=== PATIENT | female | born 1945 | race Caucasian/White ===

== ENCOUNTER 2019-12-01 09:16 | Outpatient (CLI) | payer MEDICARE, SELFPAY ==
--- NOTE | 2019-12-01 09:30 | XR_ITS ---
WS: [id number] LATERAL CERVICAL SPINE: 3 view. Lateral radiographs are performed in upright neutral, flexion and extension to the patient's toleranc e. HISTORY: Cervical Disc Disorder COMPARISON: 10/07/2019 Anterior cervical fusion plate and screws at C4-5. Interbody spacer at C4-5 and C5-6. Very slight ret rolisthesis of C4 by 2 mm. With flexion and extension there is no significant instability appreciated . Small osteophytes extend posteriorly from C4. No lucency around the hardware. XR/XR cervical spine fl/ex [id number] IMPRESSION: 1. Stable anterior cervical plate and screws at C4-5. 2. Interbody spacers at C4-5 and C5-6 are stable. 3. No instability.
== END 2019-12-01 09:17 | disposition home or self-care (01) ==
LOC: RAD 09:23
PROVIDERS: Family Provider Nurse Practitioner Family; PCP Family Medicine; Visit Provider Specialist
DX: M50.020 Cervical disc disorder with myelopathy, mid-cervical region, unspecified level (principal)
CPT/HCPCS: 72040

== ENCOUNTER 2019-12-24 15:45 | Observation (INO) | payer MEDICARE, SELFPAY ==
[2019-12-22 09:48] VITALS: BMI 26.9
--- NOTE | 2019-12-22 09:54 | ECG_ITS ---
Measurements Intervals [place] Rate: 56 P: 69 SC: 174 QRS: 26 QRSD: 100 T: 90 QT: 404 QTc: 393 SINUS BRADYCARDIA LOW QRS VOLTAGE IN PRECORDIAL LEADS [QRS DEFLECTION < 1.0 mV IN CHEST LEADS] NONSPECIFIC ST & T-WAVE ABNORMALITY Compared to ECG 08/09/2016 11:10:16 T-wave abnormality now present Sinus rhythm no longer present Myocardial infarct finding no longer present Electronically Signed On 12-22-2019 18:37:12 CLINICAL RESOURCE DIRECTOR by Shantel Mcdonough M.D. [email or web address]
[2019-12-24] VITALS (15 sets, daily range): BP systolic 115–179; BP diastolic 71–96; PULSE 61–90; RESP 17–23; TEMP 36.3–37.6; O2SAT 93–97
[2019-12-24] MEDS: sodium chloride 0.9% 1,000 ML 30 ML IV (09:04)
--- NOTE | 2019-12-24 09:05 | ANES.PREANES ---
Pre-Anesthetic Assessment Pre-Anesthetic Assessment: Height/Weight: Height 1.69 m Weight 76.657 kg Temp Pulse Resp BP Pulse Ox 99.6 F 61 18 159/83 96 12/24/19 08:43 12/24/19 08:43 12/24/19 08:43 12/24/19 08:43 12/24/19 08:43 Preop Diagnosis: Intervertebral disc disorder with myelopathy, mid cervical Proposed Procedure: Operation Date: 12/24/19 09:50 Proposed Procedures p Anterior Cervical Discectomy&Fusion 1Lev C3-C4 42108 M50.020(Not Applicable) - Carlos Rosario MD Familial anesthetic complications: No trouble, last took placvix thursdcay Was Beta Marcus taken within 24 hours: N/A Last intake: Intake Last Liquid Date 12/23/19 Last Liquid Time 22:00 Last Solid Date 12/23/19 Last Solid Time 17:00 Social: Social History: Tobacco (0.5 ppd) Exam: Pre-Anes Outpt Exam: alert, oriented x 3, clear to auscultation bilaterally and regular rate & rhythm Airway: Cervical ROM: Other (limted to pain ) MP: 1 Dentition: Full Pulmonary: Pulmonary: None reported Comments: does take inhaler prn since getting walking pneumonia last summer CV/HEM: CV/HEM: GA Comments: stents - last one in 2006, on plavix and ASA : : None reported Hepatic: Hepatic: None reported GI: GI: GERD Metabolic: Metabolic: Hyperlipidemia Musc/skel: Musc/skel: RA (doesn't seem to be affected ) Neuropsych: Neuropsych: None reported Anesthetic Plan: ASA status: III Anesthesia: General Meds/Allergies Current Medications: Current Medications Generic Name Dose Route Start Last Admin Trade Name Freq PRN Reason Stop Dose Admin Sodium Chloride 1,000 mls @ 30 ml s/hr 12/24/19 08:30 12/24/19 09:04 Sodium Chloride 0.9% IV 12/25/19 08:29 30 mls/hr .Q24H GERTRUDE Administration PFSH Anesthesia PFSH: Medical History (Updated 12/23/19 @ 11:50 by Farzana Posey LPN) Cervical disc disorder with myelopathy of mid-cervical region (Acute) Surgical History History of fusion of cervical spine (Acute) C5-C6; 2003; [facility] History of fusion of cervical spine (Acute) C4-C5; 08/12/2016; [facility]. Social History Smoking and tobacco status: current every day smoker Alcohol intake: current Alcohol intake frequency: holidays/special occasions only Lives independently: Yes Household members: spouse Marital status: Current occupational status: disabled History of recent travel: No Data Anesthesia Cardiac Studies: No Data to Display
[2019-12-24] MEDS: midazolam 1 mg/mL INJ 2 mL 2 MG IVP (11:32)
--- NOTE | 2019-12-24 11:55 | PM.HPUD ---
H&P update H&P Update: DATE OF SURGERY/PROCEDURE: 12/24/19 DATE H&P PERFORMED: 12/14/19 H&P UPDATE INFORMATION: H&P completed within last 30 days, No changes to prior documentation (Off Plavix/aspirin x 1 week) and H&P is in [facility] EMR on date indicated PREOP DIAGNOSIS: Intervertebral disc disorder with myelopathy PRIMARY INDICATION FOR PROCEDURE: Neck/right upper extremity symptoms PLANNED PROCEDURE: Operation Date: 12/24/19 09:50 Proposed Procedures Anterior Cervical Discectomy/Fusion/Fixation, C3-C4 - Carlos Rosario MD Full H&P Medications/Allergies: Current Medications: Current Medications Generic Name Dose Route Start Last Admin Trade Name Freq PRN Reason Stop Dose Admin Sodium Chloride 1,000 mls @ 30 ml s/hr 12/24/19 08:30 12/24/19 09:04 Sodium Chloride 0.9% IV 12/25/19 08:29 30 mls/hr .Q24H GERTRUDE Administration Perinent History: Medical/Surgical History: Medical History (Updated 12/01/19 @ 08:21 by Carlos Rosario MD) Cervical disc disorder with myelopathy of mid-cervical region (Acute) Family History: Family History (Updated 11/30/19 @ 17:06 by Columba Devries LPN) Brother Cancer Family history of premature coronary artery disease Sister Cancer Father Cancer Mother Diabetes Other Rheumatoid arthritis Social History: Social History Smoking and tobacco status: current every day smoker Alcohol intake: current Alcohol intake frequency: holidays/special occasions only Lives independently: Yes Household members: spouse Marital status: Current occupational status: disabled History of recent travel: No
--- NOTE | 2019-12-24 11:58 | XR_ITS ---
WS: [id number] Portable lateral cervical spine in the OR, 12/24/2019, 1257 hours. Clinical Data: intra-op Comparison: Cervical spine, 12/01/2019 Findings: The endotracheal tube is in good position. The anterior cervical disc fusion of C4-C5 is visible. The re is a radiopaque needle is at the level of the C4-C5 disc. XR/XR cervical spine 1ort [id number] Impression: Localization of C4-C5 disc.
--- NOTE | 2019-12-24 12:18 | PM.OP2 ---
 Brief Operative Note: Date of procedure: 12/24/19 Pre-op diagnosis: Intervertebral disc disorderwiith myelopathy, cervical Post-op diagnosis: other (Same, with instability of joint) Procedure Done: C3-C4 ACDFF, with removal of C4-C5 fixation hardware Surgeon: Carlos Rosario Estimated blood loss (mL): 25 Complications: None Post-op Plan: PACU, the surgical carlson Condition: stable Disposition: PACU Coding Level of Care Code Acute Natural Resources Instructor for [facility]
--- NOTE | 2019-12-24 13:04 | SUR.OPER ---
family updated of patient status.
--- NOTE | 2019-12-24 14:05 | SUR.OPER ---
Family members updated of patient's status.
--- NOTE | 2019-12-24 15:02 | SUR.OPER ---
family updated of patients status
--- NOTE | 2019-12-24 15:10 | SUR.OPER ---
surgifoam placed in neck per Dr. Rosario. lot:[id number] exp: 10/25/23
--- NOTE | 2019-12-24 15:16 | XR_ITS ---
WS: [id number] CERVICAL SPINE TECHNIQUE: 3 views of the cervical spine CLINICAL INFORMATION: postop COMPARISON: None. FINDINGS: Straightening of the normal cervical lordosis with anterior interbody cervical fusion C3-C4. Hardware appears in good position. Prior fusion C5-C7. XR/XR cervical spine 3V* [id number] IMPRESSION: Normal for postoperative purposes
--- NOTE | 2019-12-24 15:32 | SUR.PHASEI ---
1530 PATIENT TO PACU AT THIS TIME VIA GURNEY FROM OR. RR EVEN AND UNLABORED. PWD. PLACED ON 8L O2 SIMPLE MASK AT 94%. ANTERIOR NECK, DRESSING, CDI WITH [place] J COLLAR IN PLACE. PATIENT DOESN'T REPLY TO VERBAL STIMULI AT THIS TIME.
--- NOTE | 2019-12-24 16:13 | SUR.PHASEI ---
1558 PATIENT TO MED SURG AT THIS TIME VIA ROD. PATIENT A/OX3. RR EVEN AND UNLABORED. PWD. DENIES PAIN. DRESSING DRY AND INTACT TO ANTERIOR NECK, WITH COLLAR IN PLACE.
[2019-12-24] MEDS: HYDROcodone-acetaminophen 10-325 mg Tablet 1 TAB PO (16:54)
[2019-12-24] MEDS: lactated ringers 1,000 ML 90 ML IV (17:16)
[2019-12-24] MEDS: docusate sodium 100 mg Capsule PO (17:50)
[2019-12-24] MEDS: ketorolac 30 mg/mL INJ 15 MG IVP (20:13)
[2019-12-24] MEDS: albuterol 8 gm MDI 2 PUFF INHALATION (20:16)
--- NOTE | 2019-12-24 20:36 | PM.PN ---
Subjective Subjective: Interval history: No complaints. Vitals/I&O/Wt Last Vital Signs Temp 98.5 F 12/24/19 19:10 Pulse 75 12/24/19 20:20 Resp 17 12/24/19 20:16 BP 115/71 12/24/19 19:10 Pulse Ox 95 12/24/19 20:20 12/24/19 12/24/19 12/24/19 06:59 14:59 22:59 Intake Total 1050 / 1050 502.5 / 1552.5 Output Total Balance 1050 / 1050 477.5 / 1527.5 Physical Exam Const: COMMON NORMALS: no apparent distress GENERAL APPEARANCE: cooperative and comfortable Neck/C-Spine: GENERAL: Yes trachea midline CERVICAL SPINE: Yes collar present Resp: COMMON NORMALS: normal respiratory effort EFFORT & INSPECTION: Yes able to speak in complete sentences and No stridor Neuro: COMMON NORMALS: moves all extremities and no focal motor deficits (bilateral upper extremities) Psych: COMMON NORMALS: speech normal ATTITUDE: Yes calm and Yes engaged ACTIVITY/MOTOR BEHAVIOR: Yes appropriate eye contact SPEECH: Yes normal speech MOOD & AFFECT: Yes euthymic mood ATTENTION/CONCENTRATION: Yes attention grossly intact INSIGHT: insight good JUDGEMENT: judgment good Skin: WOUNDS: Yes surgical site ( incision intact, with no active drainage) Details: drainage (dressing changed at bedside) Details: serosanguineous (scant old drainage on removed dressing) Data Other Xray: I personally reviewed and interpreted this imaging study as follows: (Postop changes of recent C3-C4 ACDFF, with removal of prior C4-C5 fixation hardware.) A&P Assessment and plan (1) Cervical disc disorder with myelopathy of mid-cervical region: Patient is doing well after C3-C4 ACDFF earlier today. She has ambulated to the bathroom. Plan completion of postop IV antibiotic doses, and Physical Therapy protocol. Anticipate discharge home tomorrow. Status: Acute Code(s): M50.020 - Cervical disc disorder with myelopathy, mid-cervical region, unspecified level (2) Instability of joint: Status: Acute Code(s): M25.30 - Other instability, unspecified joint Attestations Medical Necessity Statement*: Patient is appropriate for in-hospital monitoring and management after cervical spine fusion surgery performed earlier today. Coding Level of Care Code Acute Therapeutic Massage Technician for [facility] Fwd Exam Problem Focused Diagnoses Cervical disc disorder with myelopathy of mid-cervical region M50.020 Instability of joint M25.30 Comment postop global period
[2019-12-25 04:01] VITALS: BP 169/79; PULSE 64; RESP 18; TEMP 36.7; O2SAT 94
[2019-12-25] MEDS: lactated ringers 1,000 ML 90 ML IV (04:36)
[2019-12-25] MEDS: albuterol 8 gm MDI 2 PUFF INHALATION (07:44)
[2019-12-25 07:46] VITALS: PULSE 77; RESP 16; O2SAT 93
[2019-12-25 07:55] VITALS: BP 166/80; PULSE 66; RESP 18; TEMP 36.6; O2SAT 94
[2019-12-25] MEDS: docusate sodium 100 mg Capsule PO (08:01)
[2019-12-25] MEDS: pantoprazole DR 40 mg Tablet PO (08:01)
[2019-12-25] MEDS: estradiol 1 mg Tablet 0.5 MG PO (08:01)
[2019-12-25] MEDS: atorvastatin 40 mg Tablet PO (08:01)
[2019-12-25] MEDS: HYDROcodone-acetaminophen 10-325 mg Tablet 1 TAB PO (08:01)
[2019-12-25] MEDS: lisinopril 10 mg Tablet PO (08:02)
[2019-12-25] MEDS: ketorolac 30 mg/mL INJ 15 MG IVP (08:54)
--- NOTE | 2019-12-25 10:38 | ANE.PACU2 ---
 Inpatient post-anesthesia follow up: Airway intact: Yes Vital signs: Temperature 98 F Pulse Rate 66 Respiratory Rate 18 Blood Pressure 166/80 Pulse Oximetry 94 Oxygen Delivery Me thod Room Air Oxygen Flow Rate 2.5 Fraction of Inspir ed Oxygen Hydration adequate: Yes Nausea and vomiting: No Pain level: 2 Mental status: Baseline
--- NOTE | 2019-12-25 12:12 | P.OP_ITS ---
Operative Report Date of procedure: December 24, 2019 Pre-op Diagnosis: Intervertebral disc disorder with myelopathy Post-op diagnosis: other (Same, with instability of joint.) Procedure Done: 1. C3-C4 anterior cervical discectomy with osteophytectomy. 2. C3-C4 anterior cervical plate and screw fixation (Synthes Vectra system). 3. C3-C4 placement of intervertebral prosthetic device (ACIS ProTi Spacer). 4. C3-C4 anterior cervical fusion, utilizing morselized autograft obtained from the osteophytectomy portions of the procedure. Specimens removed/disposition: C4-C5 anterior plate/screw fixation hardware (Synthes Vectra system)/cleaned for return to patient. Pathology: C3-C4 disc. Surgeon: Carlos Rosario Anesthesia: General Estimated blood loss (mL): 25 Complications: None. Condition: stable Disposition: PACU Brief History: The patient is a 74-year-old female with symptomatic, radiographically confirmed cervical disc/joint disease. Imaging studies demonstrated progressive spondylolisthesis and neural impingement at C3-C4. She had a history of prior C5-C6 and C4-C5 ACDFF surgeries, the latter in 2016. Conservative treatment measures had not provided adequate lasting symptom relief. After review of the diagnostic and treatment options with the risks/potential benefits/rationale for each, the patient requested to proceed with surgical decompression/fusion/fixation at the C3-C4 level. Procedure: After routine preoperative evaluation and informed consent were obtained, the patient was taken to the Operating Room and positioned supine on the operating table. She was placed under general endotracheal anesthesia by Anesthesia personnel. She was fit in the [facility] tongs for the application of in-line cervical traction. The anterolateral neck on the left was prepared with hair clippers, and a proposed transverse skin incision was marked with a s terile skin marker. Regional anatomy and intraoperative radiography were utilized for localization purposes. The area was scrubbed with Betadine and prepped with DuraPrep. Sterile towels and drapes were applied, and an [place] surgical barrier was placed. The proposed incision site was infiltrated with 1% Xylocaine with Epinephrine. A skin incision was made and carried down into the subcutaneous tissues. The platysma was identified and divided in the direction of its fibers. A plane was dissected just medial to the carotid sheath and lateral to the midline esophagus and trachea. The prevertebral soft tissues were bluntly dissected free of the anterior margin of the cervical spine and the previously implanted C4-C5 fixation hardware. Longus coli muscles were freed from their medial attachments, and deep self-retaining retractors were placed. The C4-C5 fixation screws were released from the plate with screw removal tool, and the hardware was removed intact. The prior surgical site was inspected, with solid fusion and appropriate interbody Spacer placement demonstrated. The C3-C4 interspace was then incised with a #11 blade. Discectomy was accomplished utilizing various curettes and pituitary rongeurs. Anterior marginal osteophytes were resected with Lempert and Kerrison rongeurs. Cartilaginous endplates were stripped free with curettes. Posterior marginal osteophytes were resected with the thin-foot plate Kerrison rongeurs. The medial aspects of the neural foramina were enlarged in a similar manner. Posterior longitudinal ligament was divided and resected as necessary to further the decompression. Osteophyte resection was pursued with Kerrison rongeurs and the [employer] Adan high-speed drill with niki vivian. At the completion of the decompression, no residual central canal or neuroforaminal impingement was identified upon probing with the right angle nerve hook. Decompression was felt to be adequate, and the disc space was sized. An 8mm ACIS ProTi lordotic/small Spacer was chosen. The Spacer was packed with morselized autograft obtained from the osteophytectomy portions of the procedure. The Spacer was placed within the C3-C4 interspace while in-line cervical traction was applied via the [employer] tongs. Spacer placement was facilitated by use of the mallet and impaction tools. Once the Spacer was in good position, a Synthes Vectra plate of the desired size was chosen. The plate was secured to the C3 and C4 vertebral bodies with bilateral 4mm x14mm self- drilling screws. Final screw tightening was performed, and the screws were noted to engage the locking mechanisms within the plate at each site. The construct was inspected and found to be in good position and secure. The wound was copiously irrigated with sterile saline and antibiotic irrigation. Hemostasis was ensured with the bipolar electrocautery. Wound closure was performed in multiple layers with 2-0 Vicryl Plus simple interrupted closure of the platysma and deep dermis as separate layers. Final skin closure was performed with 4-0 Vicryl Plus in a running subcuticular pattern. Steri-Strips were applied, and a sterile dressing was placed. The patient was released from the [facility] and fit in a [place] collar. She was extubated without incident. She was transferred onto the Recovery Room cart in the supine position. The patient tolerated the procedure well. All sponge, needle, and instrument counts were correct at the completion of the procedure.
[2019-12-25 12:15] VITALS: BP 158/76; PULSE 71; RESP 18; O2SAT 96
[2019-12-25 12:31] VITALS: BP 158/76; PULSE 71; RESP 18; O2SAT 96
--- NOTE | 2019-12-25 17:02 | PM.DCS ---
Discharge Providers Date of Admission: 12/24/19 15:45 Date of Discharge: December 25, 2019 Attending Provider at Admission: Carlos Rosario MD Attending Provider at Discharge: Carlos Rosario MD Primary Care Provider: Yayo Carter DO Diagnoses at Discharge Discharge Diagnosis (1) Cervical disc disorder with myelopathy of mid-cervical region: Status: Acute Problem details: Patient is doing well after C3-C4 ACDFF performed yesterday. She appears appropriate for discharge home today. (2) Instability of joint: Status: Acute Reason for Visit Reason for Visit: Reason For Visit: Cervial Disc Disorder with myelpahty of mid cervic Brief History: The patient is a 74-year-old female with symptomatic, radiographically confirmed cervical disc/joint disease. Imaging studies demonstrated progressive spondylolisthesis and neural impingement at C3-C4. She had a history of prior C5-C6 and C4-C5 ACDFF surgeries, the latter in 2016. Conservative treatment measures had not provided adequate lasting symptom relief. After review of the diagnostic and treatment options with the risks/potential benefits/rationale for each, the patient requested to proceed with surgical decompression/fusion/fixation at the C3-C4 level. Hospital Course Hospital Course: The patient underwent C3-C4 ACDFF on 12/24/2019. A prior C4-C5 anterior cervical plate/screw fixation construct was removed at the time of the surgery. She tolerated the procedure well. She completed perioperative intravenous antibiotic doses, and the physical therapy postoperative spine protocol. She was ambulatory, voiding, and tolerating regular diet prior to discharge home on postoperative day #1. Physical Exam Const: COMMON NORMALS: no apparent distress GENERAL APPEARANCE: cooperative and comfortable Eye: COMMON NORMALS: conjunctivae normal ALIGNMENT: Yes alignment normal CONJUNCTIVA: Yes conjunctivae normal Neck/C-Spine: GENERAL: Yes trachea midline CERVICAL SPINE: Yes collar present Resp: COMMON NORMALS: normal respiratory effort EFFORT & INSPECTION: Yes able to speak in complete sentences and No stridor Neuro: COMMON NORMALS: moves all extremities GAIT: Yes normal gait Psych: COMMON NORMALS: mental status grossly normal and speech normal ATTITUDE: Yes calm and Yes engaged ACTIVITY/MOTOR BEHAVIOR: Yes appropriate eye contact SPEECH: Yes normal speech MOOD & AFFECT: Yes euthymic mood ATTENTION/CONCENTRATION: Yes attention grossly intact INSIGHT: insight good JUDGEMENT: judgment good Skin: WOUNDS: Yes surgical site (Left anterolateral neck surgical site dressing clean/dry/intact.) Discharge Data Data Completed and Pending: Completed Studies During Hospitalization Category Date Time Status XR cervical spine 1Vport 95103 Rout ine Exams 12/24/19 11:58 Completed XR cervical spine 3V* [id number] Routine Exams 12/24/19 15:16 Completed Pathology: Surgic al [PTH] Routine Pth 12/24/19 14:47 Completed Addt'l Data from Hospital Stay: C-spine x-rays: Postoperative changes of recent C3-C4 ACDFF, with interval removal of prior C4-C5 anterior fixation hardware. No noted complications. Vitals: Last Vital Signs Temp 98 F 12/25/19 07:55 Pulse 71 12/25/19 12:31 Resp 18 12/25/19 12:31 BP 158/76 12/25/19 12:31 Pulse Ox 96 12/25/19 12:31 Discharge Plan Discharge Patient Disposition: Home, Self-Care Condition: Stable Prescriptions: Continued tramadol 50 mg tablet 100 mg PO TID PRN (Reason: Pain) RF: 0 hydrocodone-acetaminophen [[place]] 10-325 mg tablet 1 tab PO BID PRN (Reason: Pain) RF: 0 leflunomide 10 mg tablet 10 mg PO DAILY RF: 0 atorvastatin 40 mg tablet 40 mg PO DAILY RF: 0 lisinopril 10 mg tablet 10 mg PO DAILY RF: 0 Humira(CF) 40 mg/0.4 mL syringe kit 40 mg SUBCUT Q14D RF: 0 estradiol 0.5 mg tablet 0.5 mg PO ONCE RF: 0 albuterol sulfate [ProAir HFA] 90 mcg/actuation HFA aerosol inhaler 2 puff INHALATION QID RF: 0 nitroglycerin [Nitrostat] 0.4 mg tablet, sublingual 0.4 mg sublingual Q5M PRN (Reason: Chest Pain) RF: 0 lansoprazole 15 mg capsule,delayed release(DR/EC) 15 mg PO ONCE RF: 0 fluticasone propionate [Children's Flonase Allergy Rlf] 50 mcg/actuation spray,suspension 1 spray INTRANASAL ONCE PRN (Reason: allergy symptoms) RF: 0 Held clopidogrel 75 mg tablet 75 mg PO DAILY RF: 0 Hold Instructions: Resume on 12/27/19. aspirin [Adult Low Dose Aspirin] 81 mg tablet,delayed release (DR/EC) 81 mg PO DAILY RF: 0 Hold Instructions: Resume on 12/26/19. Discharge Orders: Discharge Order (Routine); Ordered 12/25/19 Ordered By: Carlos Rosario Other Ambulatory Orders: XR cervical spine 3V* [id number] (Routine) Timeframe: 2 Weeks Facility: [facility] - Location: Radiology [place] [facility] Ordered By: Carlos Rosario Referrals: Carlos Rosario MD [Physician] - 2 weeks (PLEASE CALL FRIDAY TO SET UP A FOLLOW UP APPOINTMENT) Discharge Diet: Advance as tolerated Discharge Activity: Limit activity as instructed Patient Instructions: Anterior Cervical Discectomy (DC) Activity Restrictions/Additional Instructions: Activity -Cervical fusion: Wear cervical collar 24 hours a day. Change as necessary for showering, shaving, or if it becomes soiled. -No lifting or reaching overhead. - No driving until office followup visit - No lifting/pushing/pulling over 10 pounds - Avoid twisting or bending - Walking is encouraged - Home exercise per physical therapist - You may engage in sexual intercourse at any time as long as it is comfortable for you - Check with your doctor before returning to work. Notify your doctor if you develop: - temperature of 101.5 degrees F. or higher - redness or swelling of the incision - Foul drainage - increasing pain - increasing numbness or tingling in the arms or legs - New or increasing problems with vision, balance, memory, speaking, nausea or vomiting Hygiene: - Showering is okay - No tub baths or soaking Other: Remove outer bandage 3 days after surgery. If you have paper strips, leave in place until they fall off on their own. If you have stitches, keep your incision dry until the stitches are removed. Your doctor's office is available to answer any questions from 7 AM to 5:00 PM, Friday through at [phone]. After hours, go to the emergency room at [facility] or call 911 for assistance. Discharge Date/Time: 12/25/19 13:44 Discharge Attestations Time Spent in Discharge Care*: other (postop global) Quality Metrics Clinical Quality Measures During this hospital stay, did patient experience: None Coding Level of Care Code Acute Transmission Design Engineer for [facility] Fwd Exam Problem Focused Diagnoses Cervical disc disorder with myelopathy of mid-cervical region M50.020 Instability of joint M25.30 Comment postop global
== END 2019-12-25 13:44 | disposition home or self-care (01) ==
LOC: MEDSURG 16:20
PROVIDERS: Admitting Provider Specialist; Family Provider Family Medicine; PCP Family Medicine; Visit Provider Specialist
PROC: 0RB30ZZ Excision of Cervical Vertebral Disc, Open Approach (ICD-10-PCS; CPT 22551; principal; 2019-12-24 09:50)
DX: M50.01 Cervical disc disorder with myelopathy, high cervical region (principal); M53.2X2 Spinal instabilities, cervical region; Z82.49 Family history of ischemic heart disease and other diseases of the circulatory system; Z83.3 Family history of diabetes mellitus; F17.210 Nicotine dependence, cigarettes, uncomplicated; Z98.1 Arthrodesis status; Z79.82 Long term (current) use of aspirin; Z79.891 Long term (current) use of opiate analgesic; I25.2 Old myocardial infarction; Z79.02 Long term (current) use of antithrombotics/antiplatelets; Z95.5 Presence of coronary angioplasty implant and graft; E78.5 Hyperlipidemia, unspecified; M06.9 Rheumatoid arthritis, unspecified
CPT/HCPCS: 22551; 22853; 12345; 72020; 72040; 88304; 93005; 94640; 96361; 96365; 96374; 96375; 97110; 97161; C1713; G0378; J0131; J0690; J1100; J1885; J2001; J2250; J2405; J2704; J3010; J3490; J3535; J7030; J8499; L0172; L0174

== ENCOUNTER 2020-01-06 12:15 | Outpatient (CLI) | payer MEDICARE, SELFPAY ==
--- NOTE | 2020-01-06 12:21 | XRR_ITS ---
PROCEDURE INFORMATION: Exam: XR Cervical Spine, 2 or 3 Views Exam date and time: 01/06/2020 12:40 PM Age: 74 years old Clinical indication: Condition or disease; Fusion; Cervical region; Prior surgery; Surgery date: 6+ months; Additional info: Postop follow up TECHNIQUE: Imaging protocol: XR of the cervical spine, 2 or 3 views. COMPARISON: CR XR cervical spine 3V* [id number] 12/24/2019 4:35 PM FINDINGS: Vertebrae: There is an anterior fusion plate at C3/4 which is unchanged. Soft tissues: Normal. XR/XR cervical spine 3V* [id number] IMPRESSION: No significant change when compared with 12/24/2019.
== END 2020-01-06 12:16 | disposition home or self-care (01) ==
LOC: RAD 12:18
PROVIDERS: Family Provider Family Medicine; PCP Family Medicine; Visit Provider Specialist
DX: Z98.1 Arthrodesis status (principal)
CPT/HCPCS: 72040

== ENCOUNTER → 2020-01-19 10:48 | Outpatient (BNVA) | payer MEDICARE, SELFPAY | PROVIDERS: Family Provider Family Medicine; PCP Family Medicine; Visit Provider Internal Medicine Cardiovascular Disease | DX: E78.2 Mixed hyperlipidemia (principal); R06.02 Shortness of breath; I25.118 Atherosclerotic heart disease of native coronary artery with other forms of angina pectoris; R07.9 Chest pain, unspecified; I10 Essential (primary) hypertension; I25.5 Ischemic cardiomyopathy | CPT/HCPCS: 80061 ==

== ENCOUNTER 2020-02-02 08:11 | Outpatient (CLI) | payer MEDICARE, SELFPAY ==
--- NOTE | 2020-02-02 08:58 | ECG_ITS ---
NAME OF STUDY: LEXISCAN SESTAMIBI STRESS TEST INDICATION: Chest Pain, PROCEDURE: At the baseline, the EKG revealed normal sinus rhythm with some nonspecific T wave changes. The baseline blood pressure was 142/80 mm Hg with a heart rate of 70 beats/min. Lexiscan was infused over a period of 20 seconds. A total of 0.4 milligrams of Lexiscan was infused. The stress phase was continued for a total of 5 minutes. Heart rate at the end of the stress phase was 82 with a blood pressure 160/82. The EKG at the peak infusion revealed no significant changes. Sestamibi was injected 20 seconds after the Lexiscan infusion. Blood pressure at the end of the recovery phase was 156/81 with a heart rate of 84 per minute. CONCLUSION: 1. No significant EKG changes with the LexiScan infusion 2. No LexiScan induced chest pain or cardiac arrhythmia 3. Normal blood pressure and heart rate response 4. Sestamibi/sestamibi perfusion scan pending; see separate report. Electronically Signed On 02-02-2020 18:29:12 CDT by David Hoyos M.D. [email or web address]
--- NOTE | 2020-02-02 08:59 | NMCV_ITS ---
NM mariella perf SPECT r/s* [id number] Jim Nava Age: 74 Gender: F : 1945 Exam Date: 02/02/2020 10:11 Ordering Phys: David Hoyos MD ([email or web address]) Technologist: ALFONZO Jeronimo Exam Location: [facility] Indications: SHORTNESS OF BREATH STRESS TEST Please see separate stress test report in [facility] for full findings IMAGE PROTOCOL Rest/Stress 1 Lexiscan Day Radiopharmaceutical Dose (mCi) Administration Site Administered by Rest: Tc-99m 10.7 IV ALFONZO Jeronimo Sestamibi Stress:Tc-99m 32.9 IV ALFONZO Long Sestamibi Rest: 02-Feb-2020 60 Discovery 630 Stress: 02-Feb-2020 30 Discovery 630 0.4mg Lexiscan. Supine position only as patient was unable to lay prone. SPECT RESULTS Technical Quality: Excellent Raw Data Analysis: Normal Image Corrections: No attenuation or motion correction applied Summed Stress Score: 14 Summed Rest Score: 16 Summed Difference Score: 0 PERFUSION FINDINGS Moderate area of decreased tracer uptake in the basal and mid inferolateral, mid anterolateral, apical anterior, and all the apical segments except the apical inferior segment. Subtle area of reversibility was noted in the mid inferolateral region. FUNCTIONAL RESULTS (calculated via Gated SPECT) Stress Image LV EF (%): 28 Stress EDV (mL):183 TID: 1.13 Stress ESV (mL):132 FUNCTIONAL FINDINGS: Severe diffuse hypokinesia of the lateral wall, apex and inferior wall segments. Moderate hypokinesia of the septum and anterior wall IMPRESSIONS 1. Myocardial perfusion imaging revealing a moderate area of severely decreased tracer uptake in the inferolateral, anterolateral and apical segments with some reversibility, suggestive of myocardial scarring in the distribution of the left and descending artery and circumflex artery with possible areas of diane-infarction ischemia mostly in the distribution of the circumflex artery. 2. Diminished left ventricular ejection fraction of 28% 3. Wall motion normalities as mentioned above. 4. Moderately dilated LV cavity with an end-systolic volume of 130 mL No similar previous studies available for comparison Dr David Hoyos MD [facility] (Electronically Signed) Final Date: 02 February 2020 19:03 S
[2020-02-02 09:00] VITALS: BMI 27.1
[2020-02-02] MEDS: regadenoson 0.4 Mg/5 ml Syringe IVP (11:18)
[2020-02-02 11:21] VITALS: BP 155/75; PULSE 90
== END 2020-02-02 08:12 | disposition home or self-care (01) ==
LOC: CDL 08:12
PROVIDERS: Family Provider Family Medicine; PCP Family Medicine; Visit Provider Internal Medicine Cardiovascular Disease
DX: I25.118 Atherosclerotic heart disease of native coronary artery with other forms of angina pectoris (principal); R06.02 Shortness of breath
CPT/HCPCS: 78452; 93017; A9500; J2785

== ENCOUNTER 2020-02-03 12:11 | Outpatient (CLI) | payer MEDICARE, SELFPAY ==
--- NOTE | 2020-02-03 12:30 | XR_ITS ---
WS: [id number] Cervical spine, AP and lateral, 02/03/2020 Clinical Data: s/p cervical spinal fusion Comparison: Cervical spine, 01/06/2020. Findings: There is an anterior cervical disc fusion at C3-C4 unchanged. Inner vertebral disc spacers at C3-C4, C4-C5 and C5-C6 remain unchanged. No prevertebral soft tissue swelling is present. The lung apices and soft tissues of neck are unremarkable. No compression fractures are seen. XR/XR cervical spine 3V* [id number] Impression: Stable anterior cervical disc fusion of C3-C4 with disc spacers from C3-C4 thro h C5-C6.
== END 2020-02-03 12:12 | disposition home or self-care (01) ==
LOC: RAD 12:12
PROVIDERS: Family Provider Family Medicine; PCP Family Medicine; Visit Provider Licensed Practical Nurse
DX: Z98.1 Arthrodesis status (principal)
CPT/HCPCS: 72040

== ENCOUNTER → 2020-02-24 10:14 | Outpatient (BNVA) | payer MEDICARE, SELFPAY | PROVIDERS: Family Provider Family Medicine; PCP Family Medicine; Visit Provider Internal Medicine Rheumatology | DX: M05.79 Rheumatoid arthritis with rheumatoid factor of multiple sites without organ or systems involvement (principal); Z79.899 Other long term (current) drug therapy | CPT/HCPCS: 36415; 80076; 82565; 85025; 85651; 86140; 86480 ==

== ENCOUNTER → 2020-02-24 10:53 | Outpatient (BNVA) | payer MEDICARE, SELFPAY | PROVIDERS: Family Provider Family Medicine; PCP Family Medicine; Visit Provider Internal Medicine Rheumatology | DX: M05.79 Rheumatoid arthritis with rheumatoid factor of multiple sites without organ or systems involvement (principal); Z79.899 Other long term (current) drug therapy | CPT/HCPCS: 85025; 86480 ==

== ENCOUNTER 2020-03-14 07:48 | Outpatient (CLI) | payer MEDICARE, SELFPAY ==
--- NOTE | 2020-03-14 08:00 | CT_ITS ---
WS: [id number] CT CERVICAL SPINE TECHNIQUE: Noncontrast CT of the cervical spine with coronal and sagittal reformatted images. CLINICAL INFORMATION: s/p cervical spinal fusion COMPARISON: November 11, 2019 DLP: 593.[address] scans at [facility] use at least one of these dose optimization techniques: automat ed exposure control; mA and/or kV adjustment per patient size (includes targeted exams where dose is matched to clinical indication); or iterative reconstruction. FINDINGS: Mild cervical curve. Anterior interbody cervical fusion C3-C4. Interbody fusion grafts C4-C5 and C5-C 6. Fusion has been revised since November 11, 2019 with new fusion at C3-4. Removal of the anterior h ardware at C5. C2-C3: Tiny central disc protrusion. Mild facet arthropathy. Spinal canal and foramen are patent. C3-C4: Anterior interbody cervical fusion. Moderate right greater than left bony foraminal narrowing. Mild facet arthropathy. Mild central canal stenosis. C4-C5: Moderate right greater than right bony foraminal narrowing. Mild facet arthropathy. Mild centr al canal stenosis. C5-C6: Moderate right and mild left bony foraminal narrowing. Mild to moderate facet arthropathy. Mil d central canal stenosis. C6-C7: Moderate to severe left and moderate right bony foraminal narrowing. Moderate facet arthropath y. Osteophytic ridging. C7-T1: No significant disc bulging. Spinal canal and foramen are patent. Visualized posterior nasopharynx: Normal. Prevertebral soft tissues: Normal. CT/CT cervical spin wo con* [id number] IMPRESSION: 1. Moderate spondylitic changes with mild cervical curve convex left. 2. Recent anterior interbody cervical fusion C3-C4. Hardware appears in good p osition. 3. Prior interbody fusion C4-C5 and C5-C6. 4. Multilevel bony foraminal narrowing as described above worse at left C6-7. 5. Mild central canal stenosis C3-C6
== END 2020-03-14 07:49 | disposition home or self-care (01) ==
PROVIDERS: Family Provider Family Medicine; PCP Family Medicine; Visit Provider Licensed Practical Nurse
DX: Z98.1 Arthrodesis status (principal); M43.22 Fusion of spine, cervical region; M48.02 Spinal stenosis, cervical region
CPT/HCPCS: 72125

== ENCOUNTER → 2020-05-10 11:27 | Outpatient (BNVA) | payer MEDICARE, SELFPAY | PROVIDERS: Family Provider Family Medicine; PCP Family Medicine; Visit Provider Internal Medicine | DX: M06.9 Rheumatoid arthritis, unspecified (principal); M35.3 Polymyalgia rheumatica; M65.9 Synovitis and tenosynovitis, unspecified; F17.210 Nicotine dependence, cigarettes, uncomplicated | CPT/HCPCS: 99213 ==

== ENCOUNTER 2020-05-19 15:09 | Outpatient (CLI) | payer MEDICARE, SELFPAY ==
--- NOTE | 2020-05-19 15:45 | USCV_ITS ---
Jim Nava Age: 74 Gender: F : 1945 Exam Date: 05/19/2020 15:39 Ordering Phys: David Hoyos MD ([email or web address]) Technologist: Leatha Washburn Exam Location: [facility] [place] Indication: SHORT OF BREATH BP: / HR: 61 Rhythm: Sinus Technical Quality: Adequate MEASUREMENTS (Male / Female) Normal Values 2D ECHO LV Diastolic Diameter PLAX 5.8 cm 4.2 - 5.9 / 3.9 - 5.3 cm LV Systolic Diameter PLAX 4.0 cm IVS Diastolic Thickness 1.4 cm 0.6 - 1.0 / 0.6 - 0.9 cm IVS Systolic Thickness 1.7 cm LVPW Diastolic Thickness 1.3 cm 0.6 - 1.0 / 0.6 - 0.9 cm LVPW Systolic Thickness 1.7 cm LVOT Diameter 2.0 cm LV Ejection Fraction 2D Teich 59.2 % LV Ejection Fraction MOD 2C 38.2 % LV Ejection Fraction 2C AL 38.4 % LA Diameter 4.9 cm LA Width 4.5 cm LA Height 5.9 cm RA Width 3.3 cm RA Height 4.6 cm M-MODE LV Diastolic Diameter MM 5.7 cm 4.2 - 5.9 / 3.9 - 5.3 cm LV Systolic Diameter MM 4.2 cm LV Ejection Fraction MM Teich 51.1 % IVS Diastolic Thickness MM 0.9 cm 0.6 - 1.0 / 0.6 - 0.9 cm IVS Systolic Thickness MM 1.7 cm LVPW Diastolic Thickness MM 1.2 cm 0.6 - 1.0 / 0.6 - 0.9 cm LVPW Systolic Thickness MM 1.3 cm Aortic Annulus Diameter 3.0 cm LA Ao Ratio MM 1.6 MV E Point Septal Separation 1.4 cm DOPPLER AV Peak Velocity 111.0 cm/s LVOT Peak Velocity 102.0 cm/s AV Area Cont Eq vti 3.2 cm squared AV Area Cont Eq pk 3.0 cm squared MV Peak Velocity 62.0 cm/s MV Area PHT 1.8 cm squared Mitral E to A Ratio 1.2 MV E' Velocity 5.0 cm/s Mitral E to MV E' Ratio 9.4 Mitral E to LV E' Lateral Ratio 8.8 Mitral E to LV E' Septal Ratio 10.0 TR Peak Velocity 59.0 cm/s TR Peak Gradient 1.4 mmHg Right Atrial Pressure 3.0 mmHg Pulmonary Artery Systolic Pressu 4.4 mmHg PV Peak Velocity 97.0 cm/s RV Acceleration Time 0.1 s FINDINGS Left Ventricle Diffuse hypokinesia left ventricle with ejection fraction of around 40%.Grade I/IV diastolic dysfunction (abnormal relaxation filling pattern), normal to mildly elevated filling pressures. Mildly dilated LV cavity Right Ventricle The right ventricle is normal in size and function. Right Atrium The right atrium is normal in size. Left Atrium Moderately increased left atrial size. Mitral Valve Thickened mitral valve. Mild mitral annular calcification. Aortic Valve Thickened aortic valve. Tricuspid Valve Trace tricuspid valve regurgitation. Pulmonic Valve Trace pulmonary valve regurgitation. Pericardium Normal pericardium without effusion. Aorta Normal aortic annulus size. CONCLUSIONS Diffuse hypokinesia left ventricle with ejection fraction of around 40%.Grade I/IV diastolic dysfunction (abnormal relaxation filling pattern), normal to mildly elevated filling pressures. Mildly dilated LV cavity. Moderately increased left atrial size. Thickened mitral valve. Mild mitral annular calcification. Thickened aortic valve. Trace tricuspid and pulmonic valve regurgitation. There is no pericardial effusion. There are no intracardiac masses. Compared to the study from 07/13/2018, there is some worsening of the LV systolic function Dr David Hoyos MD [facility] (Electronically Signed) Final Date: 19 May 2020 19:56 S
== END 2020-05-19 15:10 | disposition home or self-care (01) ==
LOC: RAD 15:13
PROVIDERS: Family Provider Family Medicine; PCP Family Medicine; Visit Provider Internal Medicine Cardiovascular Disease
DX: R06.02 Shortness of breath (principal); I08.3 Combined rheumatic disorders of mitral, aortic and tricuspid valves
CPT/HCPCS: 93306

== ENCOUNTER → 2020-05-31 10:12 | Outpatient (BNVA) | payer MEDICARE, SELFPAY | PROVIDERS: Family Provider Family Medicine; PCP Family Medicine; Visit Provider Internal Medicine Cardiovascular Disease | DX: Z01.810 Encounter for preprocedural cardiovascular examination (principal); E78.2 Mixed hyperlipidemia; R06.02 Shortness of breath; I10 Essential (primary) hypertension; I25.5 Ischemic cardiomyopathy | CPT/HCPCS: 80048; 85025; 85730 ==

== ENCOUNTER 2020-06-02 14:00 | Observation (INO) | payer MEDICARE, SELFPAY ==
[2020-06-01 11:11] VITALS: BMI 28.2
[2020-06-02] VITALS (34 sets, daily range): BP systolic 133–176; BP diastolic 63–96; PULSE 48–77; RESP 13–22; TEMP 36.5–36.8; O2SAT 93–100
--- NOTE | 2020-06-02 10:00 | XACV_ITS ---
Ht: 168 cm Wt: 79 kg BSA: 1.94 m2 Gender: Female : 1945 Any Known Allergies: No known allergies Exam Priority: Routine Procedure(s): Procedure Description: Diagnostic procedure Procedure Description: Left ventriculography Procedure Description: Coronary Angiography Diagnostic Cath Status: Elective Diagnostic Findings The left main is a medium caliber vessel which was found to have around 20% narrowing distally. The left anterior descending artery is a medium caliber elongated vessel which wraps around the LV apex. The proximal and the mid segment where stented. The stents were found to be patent with minimal in-stent narrowing. The first diagonal artery was found to be relatively small caliber vessel which was found to have a high-grade ostial narrowing, appears to be jailed. The second diagonal branch was found to have mild to moderate diffuse disease proximally with no significant stenotic lesions. The first and second septal perforators were found to have ostial narrowing, and were found to be jailed. The distal LAD was found to have minimal intimal irregularities with no significant stenotic lesions. The circumflex artery is a medium to large caliber codominant vessel which has an elongated stented segment proximally, to the takeoff of the first obtuse marginal branch. The stented segment was found to be widely patent. No significant stenotic lesions were noted. Right after the first obtuse marginal branch, the circumflex proper was found to have around 40% segmental narrowing. The right coronary artery is a medium caliber vessel which was found to have minimal intimal regularities proximally. The mid segment of the artery, right after the first RV branch was found to have around 40% eccentric narrowing. The distal artery, just before the bifurcation was found to be somewhat ectatic. The PDA and the PLV branches were found to have minimal intimal irregularities. No other significant stenotic lesions were noted. Interventional Findings pLAD: 0% stenosis treated with Drug Eluting Stent. 0% residual stenosis, PARISA: 3 flow. mLAD: 0% stenosis treated with Drug Eluting Stent. 0% residual stenosis, PARISA: 3 flow. pCIRC: 0% stenosis treated with Drug Eluting Stent. 0% residual stenosis, PARISA: 3 flow. Conclusions 74-year-old white female with a history of atherosclerotic heart disease, status post multiple PCI's, presented with increasing shortness of breath/fatigue and chest pain. She had a myocardial perfusion imaging which revealed areas of fixed defects with very small areas of reversible defects. Because of her worsening symptoms and drop in the LV ejection fraction by echocardiogram, for further evaluation of her coronary status, and repeat cardiac authorization with possible PCI was recommended. Patient underwent left heart catheterization with a left and right coronary angiogram and LV angiogram today. The findings are as follows. The left main was found a 20% distal narrowing. The stented segments of the proximal and mid LAD and the proximal circumflex artery were found to be widely patent. Mild to moderate diffuse disease was noted in the other vessels. LV ejection fraction was 35 to 40%. LVEDP was 23 mmHg. Recommendations Continue current medical management and risk factor modification. Diagnostic RX Recommendation: medical therapy and/or counseling LV EDP: 23 mmHg Ejection Fraction: 35.0 % Left Ventriculography Findings: The LV gram was performed in the MOREJON projection. The LV cavity was found to be dilated. Diffuse hypokinesia of the left ventricle was noted with slight mid cavity contraction. Overall ejection fraction around 35 to 40%. No significant mitral valve prolapse or mitral regurgitation was noted. Pressures Phase:Rest AO : 321 mmHg / 141 mmHg ( 217 mmHg ) @ 7:36:00 AM LV : 300 mmHg / -2 mmHg / @ 7:34:00 AM 334 mmHg / 0 mmHg / @ 7:36:00 AM Clinical Evaluation EBL: 5mL-10mL Procedural Details Procedure Consent Obtained. Pre-Procedure Time Out. Identified patient by full name and date of as verbalized by the patient/guarantor. Does the consent match the physician's order: Yes. Accurate & Complete Informed Consent: Yes. Inpatient/Outpatient History & Physical on Chart: Yes. If H&P is completed, is and addenduem needed: No; If yes, is the addendum complete: N/A. Visualize and Verify Site with Patient/Guarantor: N/A. Relevant Radiology Images available: Yes. Pre-op teaching completed and patient verbalized understanding. The risks, benefits, and alternatives of sedation and/or procedure were discussed by physician. The patient agrees to continue. Procedure started. Correct patient, site and procedure confirmed by cath team. Current diagnosis: Chest Pain. PERRLA. Strong, equal hand miller rod mill bilaterally. Lungs clear x 5 lobes. IV Site on Arrival: 20 gauge in the left anticubital. IV Fluids: 0.9% NaCl at KVO. 0 mL infused prior to solar lab technician. Pre Procedural Pulses: bilateral dorsalis pedis was 2+. Pre Procedural Pulses: bilateral posterior tibial was 2+. Pre Procedural Pulses: bilateral radial was 2+. Oxygen started at 2liters/min via nasal canula. bilateral groins was prepped with chloroprep then draped in the usual sterile fashion. right radial was prepped with chloroprep then draped in the usual sterile fashion. Physician arrived. Equipment: 6F - Radial. [employer] Manifold Kit Model BT 2000. Cardiac Cath Pack. Heparinized Saline (2 units/mL), 1000 mL bag. Baseline sample Acquired. HR: 73 BPM. Physician scrubbed in. Immediate Pre-Procedure Time Out. Correct Patient: Yes; Correct Procedure: Yes; Correct Site: Yes; Correct Patient Position: Yes; Correct Supplies: Yes; Dried Flammable Prep: Yes; Blood Products Available: No;. Lidocaine 1% infiltrated to the right groin. Arterial access obtained with micropuncture set. A 5 equatorial guinean JL4 catheter in over wire. Multiple views taken of left coronary artery. Catheter out. A 5 equatorial guinean JR4 catheter in over wire. Multiple views taken of right coronary artery. Catheter out. A 5 equatorial guinean Angled Pig catheter in over wire. EDP Sample taken: LV 300/-3,23; HR: 76 BPM; SpO2: 99%. LV gram performed in MOREJON @ 10 mL/second for a total of 30 mL. EDP Sample taken: LV 334/-1,31; HR: 77 BPM; SpO2: 100%. Pullback taken: LV Off; AO Off; Mean: , Peak to Peak: , SEP: ; HR: 77 BPM; SpO2: 100%. Catheter out. Sheath(s) sutured into position with 2-0 silk and sterile 4x4's and Op-site applied over the site. No oozing or signs and symptoms of hematoma noted. Arterial sheath flushed and connected to tranducer and pressure bag with heparinized saline. Post Procedure: Pulses reassessed and unchanged. PERRLA. Strong, equal hand miller rod mill bilaterally. No VTE prophylaxis required. Contrast type used: Omnipaque 300 mgI/mL, 500 mL bottle. Omnipaque 130mL. Medication's Wasted: Lidocaine 1% = 5 mL. Medication's Wasted: Verapamil = 10 mg. Medication's Wasted: Nitro = 50 mg. Medication's Wasted: Heparin = 2500 units. Total IV fluids: 100 mL. Post-op diagnosis: Chest Pain. Complications: None. Estimated blood loss: 5mL-10mL. Vital chart was stopped. Procedure completed. Patient transferred by bed to 1st floor. [facility] Clinical Fraility Score: 4: Vulnerable. 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 Chest Pain Symptom Assessment: Atypical Angina. Cardiovascular Instability: No. Site: Right Femoral artery Sheath Size: 5 Fr Hemostasis Success: Unsuccessful Procedure Medications Start: 12:04 PM Stop: 12:04 PM Medication: Versed Amount: 1 mg Route: I.V. Start: 12:04 PM Stop: 12:04 PM Medication: Fentanyl Amount: 50 mcg Route: I.V. Start: 12:18 PM Stop: 12:18 PM Medication: Heparin Amount: 1500 units Route: I.V. I, the attending physician, have reviewed and verified all procedure medications. Yes, all medications given per verbal order History/Risk Factors Hypertension: Yes Dyslipidemia: Yes Peripheral Arterial Disease (PAD): No Myocardial Infarction (NC): Yes Obesity: No Renal Disease: No Tobacco Use: Current/Recent(w/in 1 year) Prior Interventions PCI: Yes CABG: No Valve Surgery: No Report Signatures Finalized by:Dr David Hoyos MD [facility] on 06/02/2020 1:22:13 PM
[2020-06-02] MEDS: diphenhydrAMINE 50 mg Capsule PO (10:43)
--- NOTE | 2020-06-02 11:11 | W.PM.OPSUD ---
Surgery/Procedure H&P Update DATE OF PROCEDURE: June 02, 2020 DATE H&P PERFORMED: 05/09/20 H&P UPDATE INFORMATION: I have reviewed H&P completed within last 30 days, I have examined patient prior to procedure and No changes to prior documentation PREOP DIAGNOSIS: Atherosclerotic heart disease, abnormal myocardial perfusion imaging, chest pain and shortness of breath PLANNED PROCEDURE: Operation Date: 06/02/20 12:00 Proposed Procedures p Cardiac Catheterization(Left) - David Hoyos MD PATIENT REASSESSED PRIOR TO SEDATION, WITH NO CHANGE NOTED: Yes PHYSICAL EXAM: alert, oriented x 3 and clear to auscultation bilaterally AIRWAY EVAL/ANESTHESIA PLAN: ASA III, Monitored Anesthesia, Local Anesthesia, Risks, benefits & alternatives of sedation and/or procedure discussed and Patient agrees to continue as planned
--- NOTE | 2020-06-02 15:00 | PC.NURSE ---
Sheath Removed Explained procedure to pt regarding femoral sheath removal. Pre-medicated with Fentanyl as ordered prior to sheath removal. Femoral artery palpated. Remove 5 Fr sheath on right groin. Manual pressure applied for 20 mins. Hemostasis achieved. No hematoma, swelling, or bleeding noted. PT and DP pulses are palpable +3. Neurovascular checks monitored. Dressings applied to right groin. Instructed pt on activity restrictions, bedrest for 5-6 hrs and immobilize right lower extremity. Educated pt to let nurse know if she felt any unusual pain, numbness, swelling or pressure or wetness on her groin area. Pt verbalizes understanding.
[2020-06-02] MEDS: fentaNYL 50 mcg/mL INJ 2mL IVP ×2 (15:11→15:24)
--- NOTE | 2020-06-02 15:30 | PC.NURSE ---
Physician notification While holding pressure during sheath pull, patient's BP continued to rise. Patient states that she had taken her BP medication, lisinopril, that morning and it is typically controlled with that. Dr. Hoyos was contacted via telephone. Physician gave order for nurse to administer amlodipine 5 mg one time now and nitro paste 2 to chest one time, RBVO. Nurse to continue to monitor.
[2020-06-02] MEDS: amlodipine 5 mg Tablet PO (15:35)
[2020-06-02] MEDS: nitroglycerin 1 gm/inch oint Pkt 2 INCH TOPICAL (15:36)
[2020-06-02] MEDS: dextrose 5%-sod chloride 0.45% 1,000 ML 100 ML IV ×2 (15:48→23:54)
[2020-06-02] MEDS: albuterol 8 gm MDI 2 PUFF INHALATION ×2 (17:01→21:30)
[2020-06-03] VITALS (8 sets, daily range): BP systolic 122–156; BP diastolic 60–75; PULSE 56–75; RESP 12–19; TEMP 36.5–36.7; O2SAT 93–96
[2020-06-03] MEDS: TRAMadol 50 mg Tablet 100 MG PO (00:09)
[2020-06-03] MEDS: lisinopril 10 mg Tablet PO (05:16)
[2020-06-03] MEDS: atorvastatin 40 mg Tablet PO (05:16)
[2020-06-03] MEDS: clopidogrel 75 mg Tablet PO (05:16)
[2020-06-03] MEDS: aspirin 81 mg EC Tablet PO (05:17)
[2020-06-03] MEDS: estradiol 1 mg Tablet 0.5 MG PO (05:29)
--- NOTE | 2020-06-03 06:29 | PC.NURSE ---
LATE ENTRY - PT AMBULATING HALLS UPON ARRIVAL. PT DENIED PAIN. WILL CONTINUE TO MONITOR.
--- NOTE | 2020-06-03 06:32 | PC.NURSE ---
PT IS IN PLEASANT MOOD THIS AM. PT IS GLAD BP HAS CAME DOWN. PT IS EXCITED TO BE GOING HOME. NON FORMULARY DRUG LEFLUNOMIDE WAS NOT GIVEN D/T HOME MED NOT BEING AVAILABLE. WILL GIVE REPORT TO ON COMING NURSE.
[2020-06-03] MEDS: albuterol 8 gm MDI 2 PUFF INHALATION ×2 (07:58→11:06)
--- NOTE | 2020-06-03 08:17 | PM.DCS ---
Discharge Providers Date of Admission: 06/02/20 14:00 Date of Discharge: June 03, 2020 Attending Provider at Admission: David Hoyos MD Attending Provider at Discharge: David Hoyos MD Primary Care Provider: Yayo Carter DO Diagnoses at Discharge Discharge Diagnosis (1) Ischemic cardiomyopathy: Status: Acute (2) Atherosclerotic heart disease of [place] coronary artery with other forms of angina pectoris: Status: Acute Problem details: EKG from 01/19/2020 revealed a sinus rhythm with nonspecific ST-T changes in the high lateral leads. Otherwise unremarkable. Normal MS and QRS duration. (3) Mixed hyperlipidemia: Status: Acute (4) Benign hypertension: Status: Acute Reason for Visit Reason for Visit: Brief History: Patient was seen in the office by Dr. Hoyos. She had chest pain. Stress testing was performed and was mildly abnormal. She was recommended for angiography. She does have a history of previous intervention. Hospital Course Hospital Course: The procedure was performed via the right common femoral artery. Angiography did not reveal any significant lesions requiring intervention. Patient was kept overnight due to the fact that the procedure was done late in the day. No vascular complications were encountered. At the time of discharge the right groin is flat, dry without bleeding. There was some oozing after the sheath was removed yesterday and that has completely stopped. The patient feels well. Physical Exam Narrative: EXAM NARRATIVE: GENERAL: In general she looks and feels well HEENT: Exam within normal limits. NECK: Supple without jugular vein distention. The carotid upstroke is normal without bruits. BACK: Exam normal. LUNGS: Clear. HEART: Regular rate and rhythm. ABDOMEN: Benign without organomegaly or tenderness. EXTREMITIES: No edema. Right groin site flat, dry without bleeding or hematoma NEUROLOGIC: Exam normal. SKIN: Unremarkable. Discharge Data Data Completed and Pending: Completed Studies During Hospitalization Category Date Time Status SALES OPERATIONS ASSISTANT request for service Routin e Exams 06/02/20 10:00 Completed Vitals: Last Vital Signs Temp 97.7 F 06/03/20 07:30 Pulse 60 06/03/20 08:03 Resp 16 06/03/20 08:01 BP 122/65 06/03/20 07:30 Pulse Ox 95 06/03/20 08:01 Discharge Plan Discharge Patient Disposition: Home, Self-Care Condition: Stable Prescriptions: Continued tramadol 50 mg tablet 100 mg PO BEDTIME PRN (Reason: Pain) RF: 0 hydrocodone-acetaminophen [Vale] 10-325 mg tablet 1 tab PO BID PRN (Reason: Pain) RF: 0 lisinopril 10 mg tablet 10 mg PO QAM RF: 0 clopidogrel 75 mg tablet 75 mg PO QAM RF: 0 Hold Instructions: Resume on 12/27/19. albuterol sulfate [ProAir HFA] 90 mcg/actuation HFA aerosol inhaler 2 puff INHALATION QID RF: 0 nitroglycerin [Nitrostat] 0.4 mg tablet, sublingual 0.4 mg sublingual Q5M PRN (Reason: Chest Pain) RF: 0 aspirin [Adult Low Dose Aspirin] 81 mg tablet,delayed release (DR/EC) 81 mg PO QAM RF: 0 Hold Instructions: Resume on 12/26/19. lansoprazole 15 mg capsule,delayed release(DR/EC) 15 mg PO QAM RF: 0 fluticasone propionate [Children's Flonase Allergy Rlf] 50 mcg/actuation spray,suspension 1 spray INTRANASAL PRN PRN (Reason: allergy symptoms) RF: 0 Humira Pen 40 mg/0.8 mL pen injector kit See Rx Instructions SUBCUT .COMPLEX Qty: 4 RF: 5 atorvastatin 40 mg tablet 40 mg PO QAM RF: 0 leflunomide 10 mg tablet 20 mg PO QAM RF: 0 estradiol 0.5 mg tablet 0.5 mg PO QAM RF: 0 Discharge Orders: Discharge Order (Routine); Ordered 06/03/20 Ordered By: Jama Cutler Referrals: Lacy Hooker FNP [Nurse Practitioner] - 7-10 days Discharge Diet: Usual diet Discharge Activity: Limit activity as instructed Activity Restrictions/Additional Instructions: No lifting over 10 pounds for 2 days. No change in medications. Office will call on Friday for follow-up appointment scheduling Discharge Attestations Time Spent in Discharge Care*: less than 30 min Specific Discharge Activities: Specific discharge activities: educating patient Quality Metrics Clinical Quality Measures During this hospital stay, did patient experience: None Coding Level of Care Code Established Pt Acute Zoo Veterinarian for Coty Fwjulieta Patient Type Established History Detailed Exam Detailed Medical Decision Making Moderate Complexity Diagnoses Ischemic cardiomyopathy I25.5 Atherosclerotic heart disease of [place] coronary artery with other forms of angina pectoris I25.118 Mixed hyperlipidemia E78.2 Benign hypertension I10
--- NOTE | 2020-06-03 08:30 | PC.NURSE ---
oozing dressing site Noted 2x2 dressing overnight is mildly soaked with blood. Applied manual pressure directly and 2-3 cm above puncture site for 10 mins. Dressing changed. Notified Dr Cutler. And he is aware of the oozing of blood. He verbally ordered to remove old dressing and apply new one then let pt ambulate and monitor for any new oozing of blood before she is discharge today. Will keep monitoring.
[2020-06-03] MEDS: pantoprazole DR 40 mg Tablet PO (09:00)
[2020-06-03] MEDS: HYDROcodone-acetaminophen 10-325 mg Tablet 1 TAB PO (09:01)
--- NOTE | 2020-06-03 10:14 | PC.NURSE ---
Physician notification Updated him on pt's ambulation x1 about 500 feet down the hallways.Re-checked the new dressing that was applied and noted scant blood about 0.4cm x 0.3cm. wants me to let her ambulate again and checked post lunch time.
--- NOTE | 2020-06-03 11:45 | PC.NURSE ---
Notified Dr. Cutler Updated Dr. Cutler via telephone that patient is ambulating down hallways and new dressing has scant tract ooze about 0.3x0.5cm. Dr. Cutler want her to get up and move around and check it around 1 pm and he will be back
--- NOTE | 2020-06-03 13:30 | PC.NURSE ---
Discharge to home Discuss to pt that she need to follow-up with her pcp and Dr Hoyos FINANCE ANALYST as scheduled next week. Educated pt on Post Angiogram home care instructions such as activity restrictions of no lifting more than 10 lbs, wound care and how to apply pressure on her right groin when she starts to ooze with the nurse and doctor. Educated pt to monitor her BP and keep a log of it twice a day. Discharge instructions provided to pt. Ushered pt via wheelchair.
--- NOTE | 2020-06-05 11:46 | PC.RESP ---
Smoking Cessation and a schedule of classes sent to patient.
== END 2020-06-03 13:41 | disposition home or self-care (01) ==
LOC: CSU 23:47
PROVIDERS: Admitting Provider Internal Medicine Cardiovascular Disease; Family Provider Family Medicine; PCP Family Medicine; Visit Provider Internal Medicine Cardiovascular Disease
DX: I25.5 Ischemic cardiomyopathy (principal); I25.118 Atherosclerotic heart disease of native coronary artery with other forms of angina pectoris; I10 Essential (primary) hypertension; E78.2 Mixed hyperlipidemia; I25.2 Old myocardial infarction; F17.210 Nicotine dependence, cigarettes, uncomplicated; Z79.891 Long term (current) use of opiate analgesic; Z79.82 Long term (current) use of aspirin; K21.9 Gastro-esophageal reflux disease without esophagitis
CPT/HCPCS: 12345; 93452; 94640; 96360; 96361; 96375; C1769; C1887; C1894; G0378; J1644; J2250; J3010; J3490; J3535; J7030; J7799; J8499; Q0163; Q9967

== ENCOUNTER → 2020-06-26 13:06 | Outpatient (BNVA) | payer MEDICARE, SELFPAY | PROVIDERS: Family Provider Family Medicine; PCP Family Medicine; Visit Provider Nurse Practitioner Family | DX: I25.118 Atherosclerotic heart disease of native coronary artery with other forms of angina pectoris (principal); F17.210 Nicotine dependence, cigarettes, uncomplicated | CPT/HCPCS: 80048 ==

== ENCOUNTER → 2020-08-15 10:11 | Outpatient (BNVA) | payer MEDICARE, SELFPAY | PROVIDERS: Family Provider Family Medicine; PCP Family Medicine; Visit Provider Internal Medicine | DX: M06.9 Rheumatoid arthritis, unspecified (principal); Z79.899 Other long term (current) drug therapy; M70.60 Trochanteric bursitis, unspecified hip; R05 Cough; F17.210 Nicotine dependence, cigarettes, uncomplicated; Y93.9 Activity, unspecified | CPT/HCPCS: 20610; 36415; 80053; 85025; 85651; 86140; 99213; J3301 ==

== ENCOUNTER → 2020-09-28 11:08 | Outpatient (BNVA) | payer MEDICARE, SELFPAY | PROVIDERS: Family Provider Family Medicine; PCP Family Medicine; Visit Provider Family Medicine | DX: M41.86 Other forms of scoliosis, lumbar region (principal); M54.5 Low back pain | CPT/HCPCS: 72100 ==

== ENCOUNTER 2020-11-08 11:59 | Outpatient (CLI) | payer MEDICARE, SELFPAY ==
--- NOTE | 2020-11-08 12:45 | USCV_ITS ---
Jim Nava Age: 75 Gender: F : 1945 Exam Date: 11/08/2020 12:10 Ordering Phys: David Hoyos MD ([email or web address]) Technologist: Lenora Che Exam Location: [facility] [place] Indication: STENOSIS Risk Factors: Previous Vascular Surgery: Right Brachial BP: / Left Brachial BP: / Right Left Velocity (cm/s) Spectral Plaque Velocity (cm/s) Spectral Plaque Syst/Diast Broadening Syst/Diast Broadening 67.30/ 16.50 Prox CCA 78.90 / 14.60 57.30/ 14.30 Mid CCA 59.20 / 12.00 49.60/ 16.50 Distal CCA 44.70 / 15.70 28.90/ 12.70 Prox ICA 36.70 / 15.80 35.50/ 15.70 Mid ICA 48.40 / 12.50 49.70/ 17.20 Distal ICA 60.10 / 15.00 56.90 ECA 63.40 0.87 ICA/CCA 1.01 Antegrade Vertebral Antegrade 23.30/ 5.60 cm/s 42.80/ 9.80 cm/s Tri Subclavian Tri 62.40 46.90 FINDINGS Intimal thickening in the common carotid and internal carotid arteries bilaterally No unstable plaques Normal Doppler flow velocity CONCLUSIONS Intimal thickening in the common carotid and internal carotid arteries bilaterally No unstable plaques or any significant stenosis Dr David Hoyos MD FAC (Electronically Signed) Final Date: 09 November 2020 18:40 S
== END 2020-11-08 12:00 | disposition home or self-care (01) ==
LOC: US 12:02
PROVIDERS: PCP Family Medicine; Visit Provider Internal Medicine Cardiovascular Disease
DX: I65.23 Occlusion and stenosis of bilateral carotid arteries (principal); R09.89 Other specified symptoms and signs involving the circulatory and respiratory systems
CPT/HCPCS: 93880

== ENCOUNTER → 2020-12-04 10:11 | Outpatient (BNVA) | payer MEDICARE, SELFPAY | PROVIDERS: PCP Family Medicine; Visit Provider Internal Medicine Rheumatology | DX: M35.3 Polymyalgia rheumatica (principal); Z79.899 Other long term (current) drug therapy; T78.40XA Allergy, unspecified, initial encounter | CPT/HCPCS: 80053; 85025; 85651; 86140 ==

== ENCOUNTER 2021-01-23 12:47 | Outpatient (CLI) | payer MEDICARE, SELFPAY ==
--- NOTE | 2021-01-23 13:30 | USCV_ITS ---
Jim Nava Age: 75 Gender: F : 1945 Exam Date: 01/23/2021 13:08 Ordering Phys: Clay Burton MD Technologist: Andre Bruce Exam Location: [facility] [place] Indication: CARDIOMYOPATHY BP: 125 / 70 HR: 65 Rhythm: Sinus Technical Quality: Fair MEASUREMENTS (Male / Female) Normal Values 2D ECHO LV Diastolic Diameter PLAX 5.2 cm 4.2 - 5.9 / 3.9 - 5.3 cm LV Systolic Diameter PLAX 4.1 cm IVS Diastolic Thickness 1.2 cm 0.6 - 1.0 / 0.6 - 0.9 cm IVS Systolic Thickness 1.6 cm LVPW Diastolic Thickness 1.3 cm 0.6 - 1.0 / 0.6 - 0.9 cm LVPW Systolic Thickness 1.4 cm LVOT Diameter 2.0 cm LV Ejection Fraction 2D Teich 31.3 % LV Ejection Fraction MOD 2C 52.0 % LV Ejection Fraction 2C AL 51.6 % LA Diameter 4.7 cm LA Width 4.2 cm LA Height 5.2 cm RA Width 4.0 cm RA Height 5.0 cm Aorta at Sinotubular Diameter 3.0 cm M-MODE LV Diastolic Diameter MM 5.7 cm 4.2 - 5.9 / 3.9 - 5.3 cm LV Systolic Diameter MM 3.8 cm LV Ejection Fraction MM Teich 62.2 % IVS Diastolic Thickness MM 1.1 cm 0.6 - 1.0 / 0.6 - 0.9 cm IVS Systolic Thickness MM 1.6 cm LVPW Diastolic Thickness MM 1.1 cm 0.6 - 1.0 / 0.6 - 0.9 cm LVPW Systolic Thickness MM 1.9 cm RV Diastolic Diameter MM 2.0 cm Aortic Annulus Diameter 3.2 cm LA Ao Ratio MM 1.6 MV E Point Septal Separation 1.3 cm DOPPLER AV Peak Velocity 106.0 cm/s LVOT Peak Velocity 85.0 cm/s AV Area Cont Eq vti 2.7 cm squared AV Area Cont Eq pk 2.6 cm squared MV Area PHT 2.7 cm squared Mitral E to A Ratio 1.0 MV E' Velocity 31.0 cm/s Mitral E to MV E' Ratio 8.2 Mitral E to LV E' Lateral Ratio 8.8 Mitral E to LV E' Septal Ratio 7.7 TR Peak Velocity 219.2 cm/s TR Peak Gradient 19.2 mmHg TV Peak E Velocity 72.0 cm/s Right Atrial Pressure 3.0 mmHg Pulmonary Artery Systolic Pressu 22.2 mmHg PV Peak Velocity 77.0 cm/s FINDINGS Left Ventricle Normal LV size with a slightly diminished ejection fraction of 51%. Hypokinesia of the inferolateral wall segment.mild left ventricular hypertrophy. Grade I/IV diastolic dysfunction (abnormal relaxation filling pattern), normal to mildly elevated filling pressures. Right Ventricle Normal right ventricular size and systolic function. Right Atrium Normal right atrial size. Left Atrium Mildly increased left atrial size. Mitral Valve Thickened mitral valve. Mild mitral annular calcification. Mild mitral valve regurgitation. Aortic Valve Thickened aortic valve. Tricuspid Valve Trace tricuspid valve regurgitation. Pulmonic Valve No gross abnormalities noted Pericardium Normal pericardium without effusion. Aorta Normal ascending aorta dimension. CONCLUSIONS Normal LV size with a slightly diminished ejection fraction of 51%. Hypokinesia of the inferolateral wall segment. Mild left ventricular hypertrophy. Grade I/IV diastolic dysfunction (abnormal relaxation filling pattern), normal to mildly elevated filling pressures. Thickened mitral valve. Mild mitral annular calcification. Mild mitral valve regurgitation. Mildly increased left atrial size. Thickened aortic valve. Trace tricuspid valve regurgitation. Estimated pulmonary artery peak systolic pressure of 22 mmHg. Compared to the previous study from 05/19/2020, there is improvement in the LV ejection fraction -from 40% to 51% Dr David Hoyos MD FAC (Electronically Signed) Final Date: 24 January 2021 07:12 S
== END 2021-01-23 12:48 | disposition home or self-care (01) ==
LOC: US 12:47
PROVIDERS: PCP Family Medicine; Visit Provider Internal Medicine
DX: I25.5 Ischemic cardiomyopathy (principal); I08.3 Combined rheumatic disorders of mitral, aortic and tricuspid valves
CPT/HCPCS: 93306

== ENCOUNTER → 2021-04-18 12:03 | Outpatient (BNVA) | payer MEDICARE, SELFPAY | PROVIDERS: PCP Family Medicine; Visit Provider Family Medicine | DX: M47.816 Spondylosis without myelopathy or radiculopathy, lumbar region (principal); M06.9 Rheumatoid arthritis, unspecified; Z79.899 Other long term (current) drug therapy | CPT/HCPCS: 80053; 85025; 85651; 86140 ==

== ENCOUNTER 2021-04-19 10:27 | Outpatient (CLI) | payer MEDICARE, SELFPAY ==
--- NOTE | 2021-04-19 10:36 | XR_ITS ---
WS: [id number] Exam: XR lumbar spine 2-3V* [id number] Date/Time of Exam: 04/19/2021 10:36 AM Reason For Exam: M54.5 - Low back pain Comparison 09/28/2020 No acute fracture or dislocation. Advanced degenerative disc changes from L1 to L5. The L5-S1 disc is relatively well maintained. Mild spondylosis. Facet arthropathy at all levels. Moderate dextroscolio sis. Aortoiliac atherosclerosis. XR/XR lumbar spine 2-3V* [id number] IMPRESSION: 1. No acute fracture or malalignment. 2. Moderately advanced degenerative changes as above. 3. Dextroscoliosis.
== END 2021-04-19 10:28 | disposition home or self-care (01) ==
PROVIDERS: PCP Family Medicine; Visit Provider Internal Medicine
DX: M54.5 Low back pain (principal)
CPT/HCPCS: 72100

== ENCOUNTER → 2021-04-24 14:28 | Outpatient (BNVA) | payer MEDICARE, SELFPAY | PROVIDERS: PCP Family Medicine; Visit Provider Internal Medicine | DX: M06.9 Rheumatoid arthritis, unspecified (principal); M54.5 Low back pain; Z79.899 Other long term (current) drug therapy; F17.210 Nicotine dependence, cigarettes, uncomplicated | CPT/HCPCS: 99214 ==

== ENCOUNTER 2021-05-02 06:00 | Outpatient (RCR) | payer MEDICARE, SELFPAY | END 2021-05-23 23:59 | disposition home or self-care (01) | LOC: GPT 06:00 | PROVIDERS: PCP Family Medicine; Referring Provider Family Medicine; Visit Provider Family Medicine | DX: M47.816 Spondylosis without myelopathy or radiculopathy, lumbar region (principal) | CPT/HCPCS: 97032; 97110; 97161; 97530 ==

== ENCOUNTER 2021-05-09 14:40 | Outpatient (CLI) | payer MEDICARE, SELFPAY ==
--- NOTE | 2021-05-09 16:00 | MR_ITS ---
WS: [id number] MRI LUMBAR SPINE NONCONTRAST TECHNIQUE: Sagittal T1, T2 and STIR imaging. Axial T1 and T2 imaging. CLINICAL INFORMATION: LBP COMPARISON: None. FINDINGS: Mild lumbar curve convex right. Disc bulging worse at L2-L3 and L3-L4. No acute compression fractures . Disc space narrowing worse at L1-2, L2-3, L3-4, and L4-5. L1-L2: Mild annular bulging. Mild facet arthropathy. Spinal canal and foramen are patent. Slight narr owing of the subarticular recess bilaterally. L2-L3: Mild disc bulging with osteophytic ridging. Impingement traversing left L3 nerve root in the s ubarticular recess. Mild left and no significant right foraminal narrowing. Moderate facet arthropath y worse in the left. L3-L4: Disc osteophyte complex with endplate ridging. Left subarticular protrusion impinges the trave rsing left L4 nerve root. Mild central canal stenosis. Mild to moderate left and no significant right foraminal narrowing. Moderate left facet arthropathy. L4-L5: Mild disc bulging with osteophytic ridging. Impingement on traversing right L5 nerve root. Mil d right and no significant left foraminal narrowing. L5-S1: Tiny shallow central protrusion. Spinal canal and foramen are patent. Mild facet arthropathy. Visualized pelvic bony structures: Normal. Paravertebral soft tissues: Normal. MR/MR lumbar spine wo con* [id number] IMPRESSION: 1. Mild lumbar curve convex right. No acute compression. No high-grade central canal stenosis. 2. Mild central canal stenosis L2-L3 and L3-L4. 3. Disc bulging with impingement traversing left L3 and left L4 nerve roots at the L2-L3 and L3-4 levels respectively. Left subarticular protrusion L3-4. 4. Mild to moderate foraminal narrowing worse at left L3-4, and right L4-5. 5. Moderate facet arthropathy worse at left L2-3 and left L3-4.
== END 2021-05-09 14:41 | disposition home or self-care (01) ==
LOC: RADSHAW 14:41
PROVIDERS: PCP Family Medicine; Visit Provider Anesthesiology Pain Medicine
DX: M54.5 Low back pain (principal); M47.816 Spondylosis without myelopathy or radiculopathy, lumbar region; M48.061 Spinal stenosis, lumbar region without neurogenic claudication
CPT/HCPCS: 72148

== ENCOUNTER → 2021-07-23 12:26 | Outpatient (BNVA) | payer MEDICARE, SELFPAY | PROVIDERS: PCP Family Medicine; Visit Provider Family Medicine | DX: M06.9 Rheumatoid arthritis, unspecified (principal); F17.200 Nicotine dependence, unspecified, uncomplicated; Z79.899 Other long term (current) drug therapy | CPT/HCPCS: 71046; 80053; 85025; 85651; 86140 ==